=== PATIENT | male | born 1965 | race Caucasian/White ===

== ENCOUNTER → 2020-01-31 21:17 | Outpatient (CLI) | payer MEDICARE, MEDICAID, SELFPAY | PROVIDERS: PCP Internal Medicine; Referring Provider Family Medicine; Visit Provider Family Medicine | DX: G47.9 Sleep disorder, unspecified (principal) | CPT/HCPCS: 95810 ==

== ENCOUNTER 2024-10-11 17:17 | Inpatient (IN) | payer MEDICARE, MEDICAID, SELFPAY ==
[2024-10-11] VITALS (27 sets, daily range): BP systolic 130–158; BP diastolic 58–118; PULSE 100–124; RESP 14–45; TEMP 37–37.6; O2SAT 87–97; BMI 30.9; BMI 29.2
--- NOTE | 2024-10-11 17:42 | EKG12_ITS ---
Test Reason : SOB/TACHYCARDIA Blood Pressure : */* mmHG Vent. Rate : 107 BPM Atrial Rate : 107 BPM P-R Int : 124 ms QRS Dur : 86 ms QT Int : 314 ms P-R-T Axes : 44 13 53 degrees QTcB Int : 419 ms Sinus tachycardia Otherwise normal ECG Confirmed by TOR CONTEH, ZEINA ([id number]), dictionary editor LUIS DANIEL CURRIE ([id number]) on 10/13/2024 8:01:50 AM Referred By: Deonna Marroquin Confirmed By: ZEINA LENTZ MD
[2024-10-11 18:16] LABS: Absolute Lymphocyte Count 0.89 X10^3/uL (0.83-4.51); Absolute Neutrophil Count 8.9 X10^3/uL (2.0-7.7); Basophil# 0.08 X10^3/uL; Basophil% 0.7 % (0-1); Eosinophil# 0.37 X10^3/uL; Eosinophils% 3.2 % (0-5); Hematocrit 41.9 % (40-54); Hemoglobin 13.7 g/dL (13.0-16.5); Lymphocyte # 0.89 X10^3/ul (0.83-4.51); Lymphocyte % 7.7 % (19-41); Mean Corp Hgb Conc 32.7 g/dL (32-36); Mean Corpuscular Hgb 30.4 pg (27.0-32.0); Mean Corpuscular Volume 93.1 fL (80-94); Mean Platelet Vol. 9.7 fl (6.2-12.0); Monocyte# 1.35 X10^3/uL; Monocyte% 11.6 % (0-10); NRBC Flagged by Analyzer 0 % (0-5); Neutrophil # 8.85 X10^3/uL (2.7-7.7); Neutrophil % 76.1 % (47-70); Platelet Count 288 K/mm3 (150-450); RBC Distribution Width CV 12.8 % (11.6-14.6); RBC Distribution Width SD 43.9 fl (35.1-43.9); White Blood Count 11.6 K/mm3 (4.4-11.0)
[2024-10-11 18:25] LABS: Allen Test Positive; Base Excess 4 mmol/L (-2 to +2); Bicarbonate 27.3 mmol/L (22-26); Blood Gas Specimen Type ART; Mode Not entered; O2 Delivery Device AeroMask; PO2 102 mmHG (75-100); SITE R Radial; SO2 98 % (95-99); Total Carbon Dioxide 29 mmol/L; pCO2 37.6 mmHg (35-45); pH 7.47 (7.35-7.45)
[2024-10-11 18:33] LABS: ALB/GLOB Ratio 0.6 RATIO (0.9-2.4); AST(SGOT) 65 U/L (15-37); Alanine Aminotransfer ALT/SGPT 74 U/L (16-61); Alkaline Phosphatase 50 U/L (45-117); Anion Gap 5 (5-15); BUN 14 mg/dL (7-18); BUN/Creat Ratio 14.8 RATIO (10-20); Chloride 105 mmol/L (98-107); Creatinine, Serum 0.94 mg/dL (0.70-1.30); EST Glomerular Filtration Rate 86 mL/min (>60); Est Glom Filt Rate - Afr Amer 105 mL/min (>60); Globulin 4.8 g/dL (2.2-4.2); Glucose 137 mg/dL (74-106); Potassium 4.6 mmol/L (3.5-5.1); Protein, Total 7.8 g/dL (6.4-8.2); Sodium Level 138 mmol/L (136-145)
--- NOTE | 2024-10-11 18:40 | RAD_ITS ---
PROCEDURE: CHEST PA AND LATERAL REASON FOR EXAM: Hypoxia. TECHNIQUE: Frontal and lateral views of the chest. COMPARISON: None. FINDINGS: The heart size is normal. The mediastinal contour is unremarkable. Left basilar opacity which may represent atelectasis or infiltrate. Elevation of left hemidiaphragm. The bones are unremarkable. RAD/Chest PA and Lateral IMPRESSION: Pulmonary findings as above. Reading Location: [id number]
[2024-10-11 18:51] LABS: Lactic Acid 2.1 mmol/L (0.4-1.9)
--- NOTE | 2024-10-11 19:01 | EDS_ITS ---
HPI History of Present Illness Chief Complaint: Cough Detail of Chief Complaint: Decreased activity and cough with decreased p.o. intake Informant: other Onset/Context/Timing Onset: Days (Was seen at [facility] urgent [facility] 3 to 4 days ago and diagnosed with upper respiratory tract infection.) Context: Sudden Onset Timing: Continuous Quality: Intractable cough. Location: Upper respiratory Current Severity: Moderate Maximum Severity: Severe Worsened by: Unable to determine since patient is nonverbal Relieved by: Unable to determine since patient is nonverbal Associated Symptoms Associated Symptoms: Unable to determine Narrative Narrative: Patient is 59-year-old male who is nonverbal. He was seen in urgent care diagnosed with upper respiratory tract infection. Unknown if he has subjective fever or chills. He does not appear well. He has an intractable cough. His lips appeared cyanotic. He has slight delay in capillary refill Prior similar symptoms: Yes Recent Illness/Hospitalization: Yes [facility] Medical History Mental disability Seizures Home Medications ?Medication ?Instructions ?Recorded ?Last Taken ?Type acetaminophen 650 mg mg PO 10/11/24 Unknown Histo ry tablet,extended release carbamazepine 100 mg chewable mg 10/11/24 Unknown Hist ory tablet lamotrigine 25 mg tablet mg 10/11/24 Unknown History linaclotide 290 mcg capsule mcg DAILY 10/11/24 Unknown History (Linzess) losartan 100 mg tablet mg DAILY 10/11/24 Unknown Hi story omeprazole 40 mg capsule,delayed mg DAILY 10/11/24 Unk nown History release Allergy/AdvReac Type Severity Reaction Status Date / Time No Known Allergies Allergy Verified 10/11/24 17:27 Social History Smoking Status: Never smoker ROS ROS ED Review of Systems ROS Unobtainable: due to mental status EXAM Physical Exam Const Vital Signs: 10/11/24 17:17 10/11/24 17:21 10/11/24 17:31 Temperature 98.6 F 98.6 F Temperature Source Oral Oral Pulse Rate 116 H 113 H 112 H Respiratory Rate 27 H 45 H 40 H Respiratory Effort Respiratory Depth Respiratory Pattern Blood Pressure 141/75 H 149/68 H Blood Pressure Mean 97 95 Pulse Ox 87 94 94 Oxygen Delivery Method Room Air Nasal Cannula Nasal Cannula Oxygen Flow Rate (L/min) 2 2 02/06/25 17:36 10/11/24 17:45 10/11/24 17:52 Temperature Temperature Source Pulse Rate 116 H 120 H Respiratory Rate 28 H 37 H Respiratory Effort Respiratory Depth Respiratory Pattern Blood Pressure 154/67 H Blood Pressure Mean 85 Pulse Ox 92 93 Oxygen Delivery Method Nasal Cannula Oxygen Flow Rate (L/min) 4 10/11/24 18:00 10/11/24 18:01 10/11/24 18:02 Temperature Temperature Source Pulse Rate 122 H 121 H 114 H Respiratory Rate 42 H 41 H 33 H Respiratory Effort Respiratory Depth Respiratory Pattern Tachypnea Blood Pressure 158/72 H Blood Pressure Mean 89 Pulse Ox 90 87 Oxygen Delivery Method Oxygen Flow Rate (L/min) 10/11/24 18:10 10/11/24 18:15 10/11/24 18:26 Temperature 99.6 F H Temperature Source Axillary Pulse Rate 116 H 121 H Respiratory Rate 26 H 32 H Respiratory Effort Short of Breath Labored Accessory Muscle Use Head [place] Respiratory Depth Shallow Respiratory Pattern Tachypnea Blood Pressure 158/72 H Blood Pressure Mean 100 Pulse Ox 95 94 Oxygen Delivery Method Nasal Cannula Nasal Cannula Oxygen Flow Rate (L/min) 4 4 10/11/24 18:30 10/11/24 19:00 Temperature 98.8 F Temperature Source Axillary Pulse Rate 124 H 121 H Respiratory Rate 21 H 38 H Respiratory Effort Respiratory Depth Respiratory Pattern Blood Pressure 145/118 H Blood Pressure Mean 127 Pulse Ox 92 94 Oxygen Delivery Method High Flow Oxygen Flow Rate (L/min) 10 Vital signs reviewed. Positive well nourished and well developed Constitutional Narrative: BMI is 30.9. General Appearance ED: well developed and cyanotic HEENT Reports moist mucous membranes Eyes PERRL and EOMs intact bilaterally General Eye ED: Negative for pale conjunctiva or scleral icterus Neck no lymphadenopathy, supple and no JVD Chest Wall inspection of chest normal and palpation of chest normal Resp No normal respiratory effort and No clear to auscultation bilaterally Resp Narrative: There is use of accessory muscles. He is tachypneic. Auscultation: rhonchi throughout and wheezes expiratory wheezes and throughout Cardio regular rhythm, S1 normal heart sound, S2 normal heart sound and no murmurs Rate: tachycardic GI normal to inspection, nondistended, normoactive bowel sounds, non-tender, non- distended and no masses; Negative for hepatosplenomegaly Palpation: soft Back/Spine Back/Spine Narrative: Unable determine if patient has CVA tenderness. Extremity Extremity Narrative: There is no clubbing or cyanosis noted. Neuro CN's II-XII intact bilaterally Neuro Narrative: Moves all extremities. Psych Psych Narrative: Unable to determine Skin Skin Narrative: There is no mottling. There is no petechiae. Sepsis Attestation Sepsis Alert: Yes Sepsis Attestation: Agree w/Sepsis Date exam was performed: 10/11/24 Time exam was performed: 19:09 Possible Source of Sepsis: Pulmonary Fluid Resuscitation Fluid resuscitation indicated?: Yes Fluid Resuscitation ordered: 30 ml/kg fluid bolus ordered MDM MDM MDM Narrative Medical decision making narrative: Need to evaluate for viral infection versus bacterial infection. Patient is hypoxic. ABG was obtained because of decreased level of consciousness bradycardia blood cultures were obtained, fluid bolus was administered Lab Data Attestation: I reviewed the patient's lab results. Lab results narrative: White count is slightly of 11.6 thousand with mild shift. Comprehensive metabolic panel is remarkable for glucose of 137 with normal CO2 anion gap. Lactate elevated 2.1. Labs: Laboratory Results - last 24 hr 10/11/24 17:46 WBC 11.6 H RBC 4.50 L Hgb 13.7 Hct 41.9 MCV 93.1 MCH 30.4 MCHC 32.7 RDW Std Deviation 43.9 RDW Coeff of Javed 12.8 Plt Count 288 MPV 9.7 Immature Gran % (Auto) 0.700 Neut % (Auto) 76.1 H Lymph % (Auto) 7.7 L [place] % (Auto) 11.6 H Eos % (Auto) 3.2 Baso % (Auto) 0.7 Absolute Neuts (auto) 8.9 H Absolute Lymphs (auto) 0.89 Nucleated RBC % 0 Sodium 138 Potassium 4.6 Chloride 105 Carbon Dioxide 28.0 Anion Gap 5 BUN 14 Creatinine 0.94 Estim Creat Clear Calc 77.80 Est GFR (MDRD) Af Amer 105 Est GFR (MDRD) Non-Af 86 BUN/Creatinine Ratio 14.8 Glucose 137 H Lactic Acid 2.1 H* Calcium 9.0 Total Bilirubin 0.20 AST 65 H ALT 74 H Alkaline Phosphatase 50 Total Protein 7.8 Albumin 3.0 L Globulin 4.8 H Albumin/Globulin Ratio 0.6 L ABG Data Attestation: I personally reviewed and interpreted this ABG as follows: Interpretation: ABG was obtained since he looks very ill and concern for CO2 retention. Patient has mild alkalemia with a pH of 7.47. Bicarb is 27.3 which is elevated. Total CO2 is normal at 29. pCO2 is 37.6 and P O2 is 102. Patient is presently on 4 L of oxygen by nasal cannula. He was hypoxic upon arrival. ABG results: ABG 10/11/24 18:21 Specimen Type ART Sample Site R Radial pH 7.47 H Bicarbonate Actual 27.3 H Total CO2 29 Base Excess 4 H O2 Saturation 98 O2 % 6.0 ABG pCO2 37.6 ABG pO2 102 H Parvez Test Positive O2 Delivery Device AeroMask Vent Mode Not entered Radiography Chest X-Ray - ED: 2 View, Read by ED Physician (Suboptimal film. Inspiratory volume is limited. Patient does have a significant hiatal hernia. There is borderline cardiomegaly. There is no infiltrate or effusion noted.) and - (There is concern patient may have aspirated because he is having trouble clearing secretions. Respiratory therapist told me he has brown-green thick copious sputum production.) Diagnostic Testing: Clinical Impression(s) from Imaging Studies Chest X-Ray 10/11/24 18:40 IMPRESSION: Pulmonary findings as above. Reading Location: [facility] Radiology report was noted. In my opinion patient has a hiatal hernia. He does not have an elevated left hemidiaphragm. He probably does have atelectasis. EKG Initial EKG: Attestation: I personally reviewed and interpreted this EKG as follows: Interpretation: Sinus Tachycardia (Rate is 107. EKG is otherwise normal. [place] interval is 124 ms. QRS duration 86 ms. QT duration 3 and 14 ms. [place] is normal.) Management Discussion w/another healthcare provider: Hospitalist (Dr. Marroquin was paged. Patient be a full admission. Since patient by definition has sepsis he was admitted to ICU.) Treatment and Re-Evaluation :: Patient did receive albuterol for his wheezing. He did improve. He still has copious colored sputum. 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
--- NOTE | 2024-10-11 19:39 | HP.PCM.HOS_ITS ---
HPI - General General Date of Admission: 10/11/24 Date of Service: 10/11/24 Chief Complaint: Recent URI, worsening dyspnea, productive cough, hypoxia. HPI Narrative The patient is a 59 y/o M w/ PMHx: HTN, HLD, GERD, Mental disability, Seizure disorder, Chronic constipation who presents to the [facility] ED on 10/11/2024 with history of recent evaluation in urgent care approximately 3 to 4 days prior diagnosed with an upper respiratory tract infection at that time with persistent subjective fevers and chills, intractable cough, dyspnea with decreased oral intake progressively worsening prompting eventual [facility] ED evaluation. tent worker also reports that patient had rhinorrhea and congestion. She denies any specific nausea, emesis or diarrhea bouts. In the ED patient is noted to be nonverbal but is normally very interactive and alert and humming. tent worker is in the ED with the patient currently notes this is the most awake he is looked in the last couple days. She does report that he has a modified diet specifically pur?ed diet but that he does not choke on his foods or cough. She does report that there have been several influenza cases as well as COVID cases in the care home. Father is present for discussions and is his guardian. Workup in the ED included T98.6, heart rate 116, BP 141/75, respiratory rate 27, 87% on room air intermittently desaturating with most recent repeat vitals T98.8 Axillary, heart rate 121, BP 145/118, respiratory rate 38, 94% on 10 L high flow, CBC with WC 11.6, hemoglobin 13.7, platelet 288 with left shift, ABG with pH 7.47, bicarb 27.3, pCO2 37.6, pO2 102 on aero mask, CMP with glucose 137, lactic acid 2.1, AST/LT 65/74, chest x-ray with left basilar opacity suspicious for atelectasis versus infiltrate, elevation left hemidiaphragm, blood culture x 2 pending per ED, rapid SARS COVID/influenza/RSV negative. In the ED patient ministered normal saline with plan for 2500 cc per 30 cc/kg IV fluid sepsis bolus, azithromycin 500 mg x 1, Rocephin 2 g IV x 1. [facility] Medical History (Updated 10/11/24 @ 20:[address] Deonna Marroquin MD) Mental disability Obesity Chronic constipation GERD (gastroesophageal reflux disease) HLD (hyperlipidemia) HTN (hypertension) Mental disability Seizures Home Medications ?Medication ?Instructions ?Recorded ?Last Taken ?Type acetaminophen 650 mg mg PO 10/11/24 Unknown Histo ry tablet,extended release carbamazepine 100 mg chewable mg 10/11/24 Unknown Hist ory tablet lamotrigine 25 mg tablet mg 10/11/24 Unknown History linaclotide 290 mcg capsule mcg DAILY 10/11/24 Unknown History (Linzess) losartan 100 mg tablet mg DAILY 10/11/24 Unknown Hi story omeprazole 40 mg capsule,delayed mg DAILY 10/11/24 Unk nown History release Allergy/AdvReac Type Severity Reaction Status Date / Time No Known Allergies Allergy Verified 10/11/24 17:27 Family History (Updated 10/11/24 @ 20:[address] Deonna Marroquin MD) Mother CVA (cerebral vascular accident) Hypertension Diabetes Father No problems noted. Surgical History (Updated 10/11/24 @ 20:[address] Deonna Marroquin MD) History of surgery on lower extremity Social History (Updated 10/11/24 @ 20:[address] Deonna Marroquin MD) household members: other details: retirement. Smoking Status: Never smoker alcohol intake: never substance use type: does not use ROS Review of Systems ROS Unobtainable: due to encephalopathy and due to mental condition Vital Signs Vital Signs Vital Signs: 10/11/24 17:17 10/11/24 17:21 10/11/24 17:31 Temperature 98.6 F 98.6 F Temperature Source Oral Oral Pulse Rate 116 H 113 H 112 H Respiratory Rate 27 H 45 H 40 H Respiratory Effort Respiratory Depth Respiratory Pattern Blood Pressure 141/75 H 149/68 H Blood Pressure Mean 97 95 Pulse Ox 87 94 94 Oxygen Delivery Method Room Air Nasal Cannula Nasal Cannula Oxygen Flow Rate (L/min) 2 2 10/11/24 17:36 10/11/24 17:45 10/11/24 17:52 Temperature Temperature Source Pulse Rate 116 H 120 H Respiratory Rate 28 H 37 H Respiratory Effort Respiratory Depth Respiratory Pattern Blood Pressure 154/67 H Blood Pressure Mean 85 Pulse Ox 92 93 Oxygen Delivery Method Nasal Cannula Oxygen Flow Rate (L/min) 4 10/11/24 18:00 10/11/24 18:01 10/11/24 18:02 Temperature Temperature Source Pulse Rate 122 H 121 H 114 H Respiratory Rate 42 H 41 H 33 H Respiratory Effort Respiratory Depth Respiratory Pattern Tachypnea Blood Pressure 158/72 H Blood Pressure Mean 89 Pulse Ox 90 87 Oxygen Delivery Method Oxygen Flow Rate (L/min) 10/11/24 18:10 10/11/24 18:15 10/11/24 18:26 Temperature 99.6 F H Temperature Source Axillary Pulse Rate 116 H 121 H Respiratory Rate 26 H 32 H Respiratory Effort Short of Breath Labored Accessory Muscle Use Head [place] Respiratory Depth Shallow Respiratory Pattern Tachypnea Blood Pressure 158/72 H Blood Pressure Mean 100 Pulse Ox 95 94 Oxygen Delivery Method Nasal Cannula Nasal Cannula Oxygen Flow Rate (L/min) 4 4 10/11/24 18:30 10/11/24 19:00 Temperature 98.8 F Temperature Source Axillary Pulse Rate 124 H 121 H Respiratory Rate 21 H 38 H Respiratory Effort Respiratory Depth Respiratory Pattern Blood Pressure 145/118 H Blood Pressure Mean 127 Pulse Ox 92 94 Oxygen Delivery Method High Flow Oxygen Flow Rate (L/min) 10 Weight Weight: 174 lb 9.698 oz Body Mass Index (BMI) 30.9 Physical Exam Narrative Physical Examination: General: Lethargic, falling asleep, evident respiratory distress, seated upright in ED bed, coughing significantly, requiring notable suctioning, unable to answer any orientation questions. Skin: Normal color, normal turgor, no icterus, no cyanosis. HEENT: AT/NC, EOMI, PERRLA, dry MM, coughing frequently with oral secretions being suctioned, not purulent appearing currently but clear, no carotid bruits or JVD noted but difficult assessment is moving frequently given coughing fits and obese with thickened neck. Lungs: CTA bilaterally, moderate effort, mild decrease BL bases, no rales, ronchi or wheezing. Heart: Tachycardic with regular rhythm; no gallop, rub audible. Abdomen: Soft, obese, NTTP, difficult to assess bowel sounds given frequent coughing with referred sounds, unable to discern distention HSM given coughing frequently and using intra-abdominal muscles. Extremities: No cyanosis, no clubbing, no significant marked noted edema, chronically uses bilateral leg braces. Neurological: Lethargic, falling asleep, evident respiratory distress, seated upright in ED bed, coughing significantly, requiring notable suctioning, unable to answer any orientation questions, cognitive function decreased baseline given nonverbal status but normally humming and interactive, currently not baseline intact; pupils equally reactive to light and accommodation, cranial nerves grossly appear normal but difficult assessment given severity of illness, moving extremities, strength severely globally decreased. Psychiatric: Affect appears fatigued, lethargic, ill-appearing, evidence of respiratory distress, no acute evidence of depressive or anxiety feelings. Results Lab / Micro Data 10/11/24 17:46 10/11/24 17:46 Labs: Laboratory Results - last 24 hr 10/11/24 17:46: WBC 11.6 H, RBC 4.50 L, Hgb 13.7, Hct 41.9, MCV 93.1, MCH 30.4, MCHC 32.7, RDW Std Deviation 43.9, RDW Coeff of Javed 12.8, Plt Count 288, MPV 9.7, Immature Gran % (Auto) 0.700, Neut % (Auto) 76.1 H, Lymph % (Auto) 7.7 L, M suha % (Auto) 11.6 H, Eos % (Auto) 3.2, Baso % (Auto) 0.7, Absolute Neuts (auto) 8.9 H, Absolute Lymphs (auto) 0.89, Nucleated RBC % 0, Sodium 138, Potassium 4.6, Chloride 105, Carbon Dioxide 28.0, Anion Gap 5, BUN 14, Creatinine 0.94, Estim Creat Clear Calc 77.80, Est GFR (MDRD) Af Amer 105, Est GFR (MDRD) Non-Af 86, BUN/Creatinine Ratio 14.8, Glucose 137 H, Lactic Acid 2.1 H*, Calcium 9.0, Total Bilirubin 0.20, AST 65 H, ALT 74 H, Alkaline Phosphatase 50, Total Protein 7.8, Albumin 3.0 L, Globulin 4.8 H, Albumin/Globulin Ratio 0.6 L Micro: Microbiology 10/11/24 17:46 Mucosa - Nose SARS-CoV-2, Influenza & RSV (PCR) - Final ABG Data ABG results: ABG 10/11/24 18:21 Specimen Type ART Sample Site R Radial pH 7.47 H Bicarbonate Actual 27.3 H Total CO2 29 Base Excess 4 H O2 Saturation 98 O2 % 6.0 ABG pCO2 37.6 ABG pO2 102 H Parvez Test Positive O2 Delivery Device AeroMask Vent Mode Not entered Imaging Radiology Impression Chest X-Ray 10/11/24 18:40 IMPRESSION: Pulmonary findings as above. Reading Location: [facility] Assessment & Plan Assessment/Plan (1) Sepsis: (2) Acute hypoxemic respiratory failure: (3) Pneumonia: PLAN: Plan The patient is a 59 y/o M w/ PMHx: HTN, HLD, GERD, Mental disability, Seizure disorder, Chronic constipation who presents to the [facility] ED on 10/11/2024 with history of recent evaluation in urgent care approximately 3 to 4 days prior diagnosed with an upper respiratory tract infection at that time with persistent subjective fevers and chills, intractable cough, dyspnea with decreased oral intake progressively worsening prompting eventual [facility] ED evaluation. #1. Acute sepsis (acute hypoxic respiratory failure, encephalopathy, tachycardia also documented per ED, lactic acidosis but no other overt end organ failure) secondary to acute encephalopathy secondary to acute hypoxic respiratory failure secondary to acute left lower lobe pneumonia, community- acquired: Will admit to ICU per protocol, ABG not severe appearing however patient is significantly cephalopathic, low threshold to repeat if necessary, generator operator consulted, will maintain on oxygen with wean as tolerated to room air, continue ATC duonebs, PRN albuterol, maintain on IV Unasyn and Azithromycin per severe PNA protocol also until assure aspiration not a component, HOB, IS parameters w/ pending sputum cultures and urine antigens. Bld cx x 2 obtained in the ED. Will obtain AM oxygenation trial for discharge planning daily. #2. Mild transaminitis, unclear etiology, likely secondary to #1: Admission CMP with AST/ALT 65/74 otherwise hepatic profile unremarkable, will continue treatment as noted above and repeat CMP in AM. #3. Hyperglycemia, mild, likely stress response: Initial glucose 137, no diabetic history, suspect likely secondary to acute illness, continue to monitor and if significantly elevated low threshold to investigate further. #4. Seizure disorder with mental disability: Complicates presentation, baseline nonverbal. Once assure oral intake is safe we will continue patient home carbamazepine and lamotrigine regimen, if unable we will transition to IV as able. #5. Hypertension: Once oral intake is safe we will continue patient home losartan, PRN hydralazine. #6. Hyperlipidemia: Once oral intake is safe we will continue patient home statin therapy. #7. Chronic constipation: Once oral intake is safe we will continue patient home Linzess and bowel regimen. #8. Obesity: Weight loss and lifestyle changes encouraged. #9. GERD: Will temporally maintain on IV PPI until sure oral intake is safe. #11. DVT prophylaxis: Lovenox. #12. CODE status: Patient HCPOA/legal guardian is his father who is present. Discussed CODE status at length including difference between FULL code, DNR-CCA and DNR-CC status. Following discussions about the differences in these status, requested continuation of DNR-CCA status which was noted from facility but discussed and clarified intubation and following discussion of examples requested DNR-CCA, no intubation status. Advanced Care Planning Face to Face Time: 16 minutes. Charges/Coding Visit Charges Inpatient E&M: 19292 Init Hosp L3 Procedures Hospitalists Procedures: 96041 Advncd Care Plan 30 Min
[2024-10-11] MEDS: 0.9% Normal Saline (1000mL) 1,000 ML 999 ML IV ×3 (19:41→22:59)
[2024-10-11] MEDS: Ceftriaxone 2 GM in 0.9% Normal Saline (50mL MB+) 50 ML IV (19:51)
--- NOTE | 2024-10-11 20:16 | ED.RN ---
PATIENT NURSE LIZZIE Eckert/ [facility] UPDATED ON ADMISSION TO HOSPITAL.
--- NOTE | 2024-10-11 20:17 | CM.ED ---
Social work Reason for referral: admission to acute Referral source: case find This SW identified patient being admitted to acute and currently being placed at [facility] in [place]. This SW entered patient's room, introducing self and role at [facility]. Patient's father, Frederick, and caregiver, Sourav, were bedside. Sourav stated patient would be returning to [facility] upon discharge from [facility]. Sourav provided the house nurses' number should anything be needed while patient is admitted: Linda, . Naima Huber, ELECTRICAL FITTER, ENROLLMENT REPRESENTATIVE
[2024-10-11 20:33] LABS: Procalcitonin 0.29 ng/mL (0.00-0.09)
[2024-10-11] MEDS: Azithromycin 500 MG in 0.9% Normal Saline (250mL Bag) 250 ML 255 MG IV (20:46)
--- NOTE | 2024-10-11 21:08 | ED.RN ---
REPORT CALLED TO ICU NURSE MARTA. NO FURTHER QUESTIONS BY THE RECEIVING NURSE AT THIS TIME.
[2024-10-11 21:57] LABS: Reflex Lactate? Y
[2024-10-11] MEDS: Pantoprazole Sodium 40 MG in 0.9% Normal Saline (100mL MB+) 100 ML 330 MG IV (22:57)
[2024-10-11 23:25] LABS: Lactic Acid 2.1 mmol/L (0.4-1.9)
[2024-10-11] MEDS: Ipratropium/Albuterol Sulfate 3 ML AMPUL.NEB INHALATION (23:25)
[2024-10-11] MEDS: 0.9% Normal Saline (1000mL) 1,000 ML 100 ML IV (23:58)
[2024-10-11] MEDS: Ampicillin/Sulbactam 3 GM in 0.9% Normal Saline (100mL MB+) 100 ML IV (23:59)
[2024-10-12] VITALS (17 sets, daily range): BP systolic 124–155; BP diastolic 60–84; PULSE 83–118; RESP 19–32; TEMP 36.6–37.3; O2SAT 91–98; BMI 29.2
[2024-10-12 03:23] LABS: Absolute Lymphocyte Count 0.72 X10^3/uL (0.83-4.51); Absolute Neutrophil Count 8.1 X10^3/uL (2.0-7.7); Basophil# 0.05 X10^3/uL; Basophil% 0.5 % (0-1); Eosinophil# 0.15 X10^3/uL; Eosinophils% 1.5 % (0-5); Hematocrit 36.5 % (40-54); Hemoglobin 11.9 g/dL (13.0-16.5); Lymphocyte # 0.72 X10^3/ul (0.83-4.51); Lymphocyte % 7.1 % (19-41); Mean Corp Hgb Conc 32.6 g/dL (32-36); Mean Corpuscular Hgb 30.2 pg (27.0-32.0); Mean Corpuscular Volume 92.6 fL (80-94); Mean Platelet Vol. 9.5 fl (6.2-12.0); Monocyte# 1.12 X10^3/uL; NRBC Flagged by Analyzer 0 % (0-5); Neutrophil # 8.08 X10^3/uL (2.7-7.7); Neutrophil % 79.1 % (47-70); Platelet Count 241 K/mm3 (150-450); RBC Distribution Width CV 12.7 % (11.6-14.6); RBC Distribution Width SD 43.5 fl (35.1-43.9); Red Blood Count 3.94 M/mm3 (4.6-6.2); White Blood Count 10.2 K/mm3 (4.4-11.0)
[2024-10-12 03:42] LABS: ALB/GLOB Ratio 0.6 RATIO (0.9-2.4); AST(SGOT) 83 U/L (15-37); Alanine Aminotransfer ALT/SGPT 75 U/L (16-61); Albumin, Serum 2.5 g/dL (3.2-5.0); Alkaline Phosphatase 71 U/L (45-117); Anion Gap 5 (5-15); BUN 10 mg/dL (7-18); BUN/Creat Ratio 11.7 RATIO (10-20); Calcium,Total 7.6 mg/dL (8.5-10.1); Chloride 111 mmol/L (98-107); Creatinine, Serum 0.85 mg/dL (0.70-1.30); EST Glomerular Filtration Rate 97 mL/min (>60); Est Glom Filt Rate - Afr Amer 117 mL/min (>60); Globulin 4.1 g/dL (2.2-4.2); Glucose 125 mg/dL (74-106); Potassium 4.1 mmol/L (3.5-5.1); Protein, Total 6.6 g/dL (6.4-8.2); Sodium Level 143 mmol/L (136-145)
[2024-10-12] MEDS: 0.9% Saline Lock 10 ML Syringe IV (04:49)
[2024-10-12] MEDS: Ampicillin/Sulbactam 3 GM in 0.9% Normal Saline (100mL MB+) 100 ML IV ×4 (04:50→23:50)
--- NOTE | 2024-10-12 06:59 | CON.PCM.CC_ITS ---
Assessment & Plan Assessment/Plan (1) Pneumonia: PLAN: Plan RECOMMENDATIONS: 1. Continue empiric antibiotics. 2. Continue appropriate DVT prophylaxis. 3. Encourage incentive spirometer use and mobilize patient as tolerated. 4. The patient is medically stable for transfer out of the intensive care unit. 5. Will sign off from a critical care perspective. Please call with any questions. IMPRESSIONS: 1. Cough and dyspnea presumed secondary to pneumonia While the patient was admitted and initially required supplemental oxygen, he has been weaned to room air this morning and has remained clinically stable from a hemodynamic perspective. Viral workup was unremarkable. Blood cultures are currently pending. Recommend continuing antimicrobials as ordered. Encourage incentive spirometer use and mobilize patient as tolerated. 2. Underlying mental disability with seizure disorder/hypertension/hyperlipidemia/obesity/GERD Complicates care, management, recovery and prognosis. Continue home medications as indicated. This note was generated with Routeware[employer] software. It may contain incorrect words, spelling, and punctuation that were not noted in checking the note before signing. HPI Consult Data Date of Consult: 10/12/24 HPI Narrative Reason for Consultation: Sepsis HPI Narrative: The patient is a 59-year-old male, with a history as outlined below, who presented to the emergency department on October 11 with subjective fevers, cough and shortness of breath. The patient currently resides at a intermediate, and according to staff, has also been experiencing rhinorrhea and nasal congestion. No specific history could be obtained from the patient himself. According to documentation, however, there has been several influenza and COVID cases in the intermediate recently. On presentation to the emergency department, the patient was documented to be afebrile but was tachycardic and tachypneic. Laboratory evaluation revealed a white blood cell count of 11,000. Chemistry profile was unremarkable. Lactate was mildly elevated at 2.1. Chest x-ray demonstrated left basilar airspace infiltrate. The patient has been completely normotensive. The patient did receive supplemental IV fluid hydration and was started on antibiotics. He was subsequently admitted to the medical intensive care unit for further management. This morning, the patient remains hemodynamically stable and is maintaining appropriate oxygen saturations on room air. [facility] Medical History (Updated 10/11/24 @ 20:[address] Deonna Marroquin MD) Mental disability Obesity Chronic constipation GERD (gastroesophageal reflux disease) HLD (hyperlipidemia) HTN (hypertension) Mental disability Seizures Home Medications ?Medication ?Instructions ?Recorded ?Last Taken ?Type acetaminophen 650 mg 1,300 mg PO Q6H 10/11/24 Unk nown History tablet,extended release atorvastatin 20 mg tablet 20 mg PO QHS 10/11/24 Unknow n History carbamazepine 100 mg chewable 150 mg PO Q12H 10/11/24 Unknown History tablet cholecalciferol (vitamin D3) 25 25 mcg PO DAILY Unknown History mcg (1,000 unit) tablet docusate sodium 100 mg capsule mg PO 10/11/24 Unknown History ibuprofen 600 mg tablet 600 mg PO 3XD 10/11/24 Unkno wn History lamotrigine 100 mg tablet 100 mg PO Q12H 10/11/24 Unkn own History linaclotide 290 mcg capsule 290 mcg PO DAILY 10/11/24 Unknown History (Linzess) losartan 100 mg tablet 100 mg feeding tube DAILY Unknown History omeprazole 20 mg capsule,delayed 20 mg PO DAILY Unknown History release polyethylene glycol 3350 17 17 g PO BID PRN constipati on 10/11/24 Unknown History gram/dose oral powder Allergy/AdvReac Type Severity Reaction Status Date / Time No Known Allergies Allergy Verified 10/11/24 17:27 Family History (Updated 10/11/24 @ 20:[address] Deonna Marroquin MD) Mother CVA (cerebral vascular accident) Hypertension Diabetes Father No problems noted. Surgical History (Updated 10/11/24 @ 20:[address] Deonna Marroquin MD) History of surgery on lower extremity Social History (Updated 10/11/24 @ 20:[address] Deonna Marroquin MD) household members: other details: senior living. Smoking Status: Never smoker alcohol intake: never substance use type: does not use ROS ROS Narrative 10 systems were reviewed with pertinent positives as noted in the HPI above. Physical Exam Const alert and no apparent distress Constitutional Narrative: Not currently answering any of my questions. General Appearance: cooperative HEENT normocephalic and head/scalp atraumatic HEENT Narrative: Blood noted in nares. Eyes EOMs intact bilaterally and conjunctivae normal Neck supple General: trachea midline Chest inspection of chest normal Resp normal respiratory effort Auscultation: Negative for rales, rhonchi or wheezes Cardio regular rate and regular rhythm GI normal to inspection, nondistended, normoactive bowel sounds Extremity no clubbing, cyanosis or edema Skin no rashes or lesions noted Neuro CN's II-XII intact bilaterally, moves all extremities and no focal motor deficits Psych Mood & Affect: flat affect Lab / Micro Data 10/12/24 03:00 10/12/24 03:00 Labs: Laboratory Results - last 24 hr 10/11/24 17:46: WBC 11.6 H, RBC 4.50 L, Hgb 13.7, Hct 41.9, MCV 93.1, MCH 30.4, MCHC 32.7, RDW Std Deviation 43.9, RDW Coeff of Javed 12.8, Plt Count 288, MPV 9.7, Immature Gran % (Auto) 0.700, Neut % (Auto) 76.1 H, Lymph % (Auto) 7.7 L, M suha % (Auto) 11.6 H, Eos % (Auto) 3.2, Baso % (Auto) 0.7, Absolute Neuts (auto) 8.9 H, Absolute Lymphs (auto) 0.89, Nucleated RBC % 0, Sodium 138, Potassium 4.6, Chloride 105, Carbon Dioxide 28.0, Anion Gap 5, BUN 14, Creatinine 0.94, Estim Creat Clear Calc 77.80, Est GFR (MDRD) Af Amer 105, Est GFR (MDRD) Non-Af 86, BUN/Creatinine Ratio 14.8, Glucose 137 H, Lactic Acid 2.1 H*, Calcium 9.0, Total Bilirubin 0.20, AST 65 H, ALT 74 H, Alkaline Phosphatase 50, Total Protein 7.8, Albumin 3.0 L, Globulin 4.8 H, Albumin/Globulin Ratio 0.6 L 10/11/24 19:35: Procalcitonin 0.29 H 10/11/24 22:25: Lactic Acid 2.1 H* 10/12/24 03:00: WBC 10.2, RBC 3.94 L, Hgb 11.9 L, Hct 36.5 L, MCV 92.6, MCH 30.2, MCHC 32.6, RDW Std Deviation 43.5, RDW Coeff of Javed 12.7, Plt Count 241, MPV 9.5, Immature Gran % (Auto) 0.800, Neut % (Auto) 79.1 H, Lymph % (Auto) 7.1 L, [place] % (Auto) 11.0 H, Eos % (Auto) 1.5, Baso % (Auto) 0.5, Absolute Neuts (auto) 8.1 H, Absolute Lymphs (auto) 0.72 L, Nucleated RBC % 0, Sodium 143, Potassium 4.1, Chloride 111 H, Carbon Dioxide 27.0, Anion Gap 5, BUN 10, Creatinine 0.85, Estim Creat Clear Calc 86.80, Est GFR (MDRD) Af Amer 117, Est GFR (MDRD) Non-Af 97, BUN/Creatinine Ratio 11.7, Glucose 125 H, Calcium 7.6 L, Total Bilirubin 0.20, AST 83 H, ALT 75 H, Alkaline Phosphatase 71, Total Protein 6.6, Albumin 2.5 L, Globulin 4.1, Albumin/Globulin Ratio 0.6 L Micro: Microbiology 10/11/24 23:20 Mucosa - Nasopharyngeal Respiratory Panel (PCR) - Final 10/11/24 17:46 Mucosa - Nose SARS-CoV-2, Influenza & RSV (PCR) - Final ABG Data ABG results: ABG 10/11/24 18:21 Specimen Type ART Sample Site R Radial pH 7.47 H Bicarbonate Actual 27.3 H Total CO2 29 Base Excess 4 H O2 Saturation 98 O2 % 6.0 ABG pCO2 37.6 ABG pO2 102 H Parvez Test Positive O2 Delivery Device AeroMask Vent Mode Not entered Imaging Radiology Impression Chest X-Ray 10/11/24 18:40 IMPRESSION: Pulmonary findings as above. Reading Location: [id number] Charges/Coding Visit Charges Inpatient E&M: 41752 Init Hosp L2
[2024-10-12] MEDS: Ipratropium/Albuterol Sulfate 3 ML AMPUL.NEB INHALATION (07:23)
--- NOTE | 2024-10-12 08:38 | CPS ---
Pt is unable to keep anything on. He does not like the Mask for the breathing treatment and will not wear a pulse ox.
[2024-10-12] MEDS: Losartan Potassium 100 MG Tablet PO (09:58)
[2024-10-12] MEDS: lamoTRIgine 100 MG Tablet PO ×2 (09:58→20:48)
[2024-10-12] MEDS: Enoxaparin 40 MG/0.4 ML Syringe SC (09:58)
[2024-10-12] MEDS: carBAMazepine 200 MG/10 ML UDC (WCH) 150 MG PO ×2 (09:59→20:48)
[2024-10-12] MEDS: Sodium Chloride 0.65% 1 SPRAY SPRAY.BTL 2 SPRAY NASAL ×2 (09:59→15:40)
[2024-10-12] MEDS: guaiFENesin 10 ML UDC (200MG/10ML) PO ×2 (10:10→15:40)
[2024-10-12] MEDS: Acetaminophen 325 MG Tablet 650 MG PO ×2 (10:10→15:41)
[2024-10-12] MEDS: Pantoprazole Sodium 40 MG in 0.9% Normal Saline (100mL MB+) 100 ML 330 MG IV ×2 (10:43→20:49)
--- NOTE | 2024-10-12 13:29 | CASEMGMT ---
Social Work ZUNILDA called the warehouse team member, Linda([phone]) , from pt's [facility]. She states that it would be extremely difficult for them to take pt back on the weekend due to staffing, there is no nurse available for the weekend. Linda did want medical updates. ZUNILDA faxed([phone]) the updates, and will follow up on Tuesday. MARTA Olmos
--- NOTE | 2024-10-12 14:17 | PN_ITS ---
Subjective Subjective Patient seen and examined. Patient is nonverbal so unable to do review of systems. He was admitted with shortness of breath. He was having quite a bad coughing fit when I went in and saw him. He was however on room air and vitals were otherwise stable. Objective Data Objective Data Vital Signs: Vital Signs Temp Pulse Resp BP Pulse Ox O2 Del Method O2 Flow Rate 98.6 F 108 H 19 H 132/67 H 92 Room Air 3 10/12/24 12:25 10/12/24 12:25 10/12/24 12:25 10/12/24 12:25 10/12/24 13:32 10/12/24 12:10/12/24 05:41 Oxygen Flow Rate (L/min) 3 Oxygen Delivery Method Room Air Weight: 170 lb 3.15 oz Body Mass Index (BMI) 29.2 Intake & Output: Intake and Output for Last 24 Hours 10/10/24 10/11/24 10/12/24 23:59 23:59 23:59 Intake Total 2915 / 2915 2065 Balance 2915 / 2915 2065 Lab / Micro Data 10/12/24 03:00 10/12/24 03:00 Labs: Laboratory Results - last 24 hr 10/11/24 17:46: WBC 11.6 H, RBC 4.50 L, Hgb 13.7, Hct 41.9, MCV 93.1, MCH 30.4, MCHC 32.7, RDW Std Deviation 43.9, RDW Coeff of Javed 12.8, Plt Count 288, MPV 9.7, Immature Gran % (Auto) 0.700, Neut % (Auto) 76.1 H, Lymph % (Auto) 7.7 L, M suha % (Auto) 11.6 H, Eos % (Auto) 3.2, Baso % (Auto) 0.7, Absolute Neuts (auto) 8.9 H, Absolute Lymphs (auto) 0.89, Nucleated RBC % 0, Sodium 138, Potassium 4.6, Chloride 105, Carbon Dioxide 28.0, Anion Gap 5, BUN 14, Creatinine 0.94, Estim Creat Clear Calc 77.80, Est GFR (MDRD) Af Amer 105, Est GFR (MDRD) Non-Af 86, BUN/Creatinine Ratio 14.8, Glucose 137 H, Lactic Acid 2.1 H*, Calcium 9.0, Total Bilirubin 0.20, AST 65 H, ALT 74 H, Alkaline Phosphatase 50, Total Protein 7.8, Albumin 3.0 L, Globulin 4.8 H, Albumin/Globulin Ratio 0.6 L 10/11/24 19:35: Procalcitonin 0.29 H 10/11/24 22:25: Lactic Acid 2.1 H* 10/12/24 03:00: WBC 10.2, RBC 3.94 L, Hgb 11.9 L, Hct 36.5 L, MCV 92.6, MCH 30.2, MCHC 32.6, RDW Std Deviation 43.5, RDW Coeff of Javed 12.7, Plt Count 241, MPV 9.5, Immature Gran % (Auto) 0.800, Neut % (Auto) 79.1 H, Lymph % (Auto) 7.1 L, [place] % (Auto) 11.0 H, Eos % (Auto) 1.5, Baso % (Auto) 0.5, Absolute Neuts (auto) 8.1 H, Absolute Lymphs (auto) 0.72 L, Nucleated RBC % 0, Sodium 143, Potassium 4.1, Chloride 111 H, Carbon Dioxide 27.0, Anion Gap 5, BUN 10, Creatinine 0.85, Estim Creat Clear Calc 86.80, Est GFR (MDRD) Af Amer 117, Est GFR (MDRD) Non-Af 97, BUN/Creatinine Ratio 11.7, Glucose 125 H, Calcium 7.6 L, Total Bilirubin 0.20, AST 83 H, ALT 75 H, Alkaline Phosphatase 71, Total Protein 6.6, Albumin 2.5 L, Globulin 4.1, Albumin/Globulin Ratio 0.6 L Micro: Microbiology 10/11/24 23:20 Mucosa - Nasopharyngeal Respiratory Panel (PCR) - Final 10/11/24 17:46 Mucosa - Nose SARS-CoV-2, Influenza & RSV (PCR) - Final ABG Data ABG results: ABG 10/11/24 18:21 Specimen Type ART Sample Site R Radial pH 7.47 H Bicarbonate Actual 27.3 H Total CO2 29 Base Excess 4 H O2 Saturation 98 O2 % 6.0 ABG pCO2 37.6 ABG pO2 102 H Parvez Test Positive O2 Delivery Device AeroMask Vent Mode Not entered Radiography Diagnostic Testing: Radiology Impression Chest X-Ray 10/11/24 18:40 IMPRESSION: Pulmonary findings as above. Reading Location: [facility] Physical Exam Const alert Constitutional Narrative: patient nonverbal, coughing incessantly HEENT normocephalic, head/scalp atraumatic and moist oral mucous membranes Eyes PERRL and EOMs intact bilaterally Neck no lymphadenopathy and supple Lymph Lymphatic: no lymphadenopathy noted and no lymphedema noted Resp Resp Narrative: mildly diminished breath sounds bibasally, no wheezing, mild crackles. On room air. Cardio regular rate, regular rhythm, S1 normal heart sound, S2 normal heart sound and no murmurs GI normal to inspection, nondistended, normoactive bowel sounds, soft to palpation, non-tender and non-distended Extremity normal capillary refill, no clubbing, cyanosis or edema and no calf tenderness General Extremity: no tenderness to palpation of joints or extremities Skin General Skin Exam: no breakdown Neuro Neuro Narrative: flat affect, nonverbal, moves all extremities spontaneously Motor Exam: general weakness Psych Mood & Affect: flat affect Assessment & Plan Assessment/Plan (1) Pneumonia: (2) Sepsis: (3) Acidosis, lactic: PLAN: Plan #Acute hypoxic respiratory failure due to left lower lobe pneumonia * Patient weaned down to room air. Admitted with a complaint of shortness of breath. Chest x-ray showed left lower lobe infiltrate versus pneumonia * Patient was coughing incessantly when I saw him today. Will benefit from speech therapy evaluation to make sure he is not aspirating. * On IV unasyn. Critical care on board. Blood and sputum cultures pending. Urine for strep and Legionella antigens ordered. * Titrate oxygen to maintain saturation above 90%. Breathing treatments bronchodilators. #Sepsis due to community-acquired pneumonia * Was tachycardic and tachypneic and had elevated lactic acid on admission 2. Management as above. * wbc is down to 10.2. #Seizure disorder: On carbamazepine and lamotrigine. 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 Stable. #Hyperlipidemia: On statin #Hypertension: On losartan. IV hydralazine as needed #DVT prophylaxis: lovenox Charges/Coding Visit Charges Inpatient E&M: 87328 [facility] Hosp L2
--- NOTE | 2024-10-12 15:14 | CHAPLAIN ---
Type of Pastoral Visit ___ Initial Visit ___ Follow-up Visit ___ On-call Visit ___ General Patient Visit ___ Spiritual Assessment ___ Family Conference ___ Bereavement ___ Rapid Response ___ Code Blue ___ Other (describe below) Pastoral Care Referral From ___ Patient ___ Family ___ Nurse ___ Physician ___ Pattern Cutter ___ American Indian Studies Professor ___ Other (describe below) Sacrament/Intervention ___ Active listening ___ Anointing ___ Uatsdin ___ Bereavement ___ Communion ___ Ngozi exploration ___ ___ Life review ___ Prayer ___ Reconciliation ___ Sacrament of Sick ___ Supportive presence ___ Wedding ___ Other (describe below) Pastoral Comments patient is non verbal; pt is sitting up in the chair but only is opening his eyes occasionally due to sleepiness; father and this sheriffs dialogue; father gives some history and life review about the patient; father is thankful that the [place] facility got him to the hospital as he has seen improvement already; pt is reported to being content; father welcomes a prayer along with the presence of support
--- NOTE | 2024-10-12 15:16 | CHAPLAIN ---
Type of Pastoral Visit _x__ Initial Visit ___ Follow-up Visit ___ On-call Visit ___ General Patient Visit ___ Spiritual Assessment ___ Family Conference ___ Bereavement ___ Rapid Response ___ Code Blue ___ Other (describe below) Pastoral Care Referral From ___ Patient _x__ Family _x__ Nurse ___ Physician ___ Pump Runner ___ Wage Analyst ___ Other (describe below) Sacrament/Intervention ___ Active listening ___ Anointing ___ Voodoo ___ Bereavement ___ Communion ___ Ngozi exploration ___ ___ Life review _x__ Prayer ___ Reconciliation ___ Sacrament of Sick _x__ Supportive presence ___ Wedding ___ Other (describe below) Pastoral Comments see previous notes about visit with patient's father
[2024-10-12] MEDS: Albuterol 2.5 MG/3 ML VIAL.NEB. INHALATION (15:44)
[2024-10-12] MEDS: Atorvastatin Calcium 20 MG Tablet PO (20:48)
[2024-10-12] MEDS: Azithromycin 500 MG in 0.9% Normal Saline (250mL Bag) 250 ML 255 MG IV (21:14)
[2024-10-12] MEDS: NORMAL SALINE 15 ML IV (23:49)
[2024-10-13 05:40] VITALS: BP 144/74; PULSE 101; RESP 20; TEMP 37.3; O2SAT 93
[2024-10-13] MEDS: guaiFENesin 10 ML UDC (200MG/10ML) PO (05:58)
[2024-10-13 06:00] VITALS: BMI 29.0
[2024-10-13] MEDS: Ampicillin/Sulbactam 3 GM in 0.9% Normal Saline (100mL MB+) 100 ML IV ×3 (06:02→17:54)
[2024-10-13 06:58] LABS: Absolute Lymphocyte Count 0.77 X10^3/uL (0.83-4.51); Absolute Neutrophil Count 9.1 X10^3/uL (2.0-7.7); Basophil# 0.06 X10^3/uL; Basophil% 0.5 % (0-1); Eosinophil# 0.29 X10^3/uL; Eosinophils% 2.6 % (0-5); Hemoglobin 12.2 g/dL (13.0-16.5); Lymphocyte # 0.77 X10^3/ul (0.83-4.51); Lymphocyte % 6.9 % (19-41); Mean Corpuscular Hgb 30.6 pg (27.0-32.0); Mean Corpuscular Volume 92.7 fL (80-94); Mean Platelet Vol. 9.9 fl (6.2-12.0); Monocyte# 0.81 X10^3/uL; Monocyte% 7.2 % (0-10); NRBC Flagged by Analyzer 0 % (0-5); Neutrophil # 9.11 X10^3/uL (2.7-7.7); Neutrophil % 81.5 % (47-70); Platelet Count 256 K/mm3 (150-450); RBC Distribution Width CV 12.7 % (11.6-14.6); RBC Distribution Width SD 43.5 fl (35.1-43.9); Red Blood Count 3.99 M/mm3 (4.6-6.2); White Blood Count 11.2 K/mm3 (4.4-11.0)
[2024-10-13 07:16] LABS: Anion Gap 8 (5-15); BUN 8 mg/dL (7-18); BUN/Creat Ratio 11.8 RATIO (10-20); Calcium,Total 7.9 mg/dL (8.5-10.1); Chloride 110 mmol/L (98-107); Creatinine, Serum 0.68 mg/dL (0.70-1.30); EST Glomerular Filtration Rate 127 mL/min (>60); Est Glom Filt Rate - Afr Amer 153 mL/min (>60); Glucose 106 mg/dL (74-106); Potassium 3.6 mmol/L (3.5-5.1); Sodium Level 142 mmol/L (136-145)
[2024-10-13 07:48] VITALS: O2SAT 93
[2024-10-13 08:47] VITALS: BP 148/91; PULSE 80; RESP 18; TEMP 36.8; O2SAT 93
[2024-10-13] MEDS: Menthol/Lanolin/Calamine/Znox 113 GM Tube 1 APPLIC TOPICAL ×2 (10:58→21:43)
[2024-10-13] MEDS: carBAMazepine 200 MG/10 ML UDC (WCH) 150 MG PO ×2 (10:58→21:42)
[2024-10-13] MEDS: Enoxaparin 40 MG/0.4 ML Syringe SC (10:58)
[2024-10-13] MEDS: lamoTRIgine 100 MG Tablet PO ×2 (10:59→21:43)
[2024-10-13] MEDS: Losartan Potassium 100 MG Tablet PO (10:59)
[2024-10-13] MEDS: Pantoprazole Sodium 40 MG in 0.9% Normal Saline (100mL MB+) 100 ML 330 MG IV ×2 (11:00→21:44)
[2024-10-13] MEDS: 0.9% Saline Lock 10 ML Syringe IV (11:00)
--- NOTE | 2024-10-13 11:08 | PN_ITS ---
Subjective Subjective Patient seen and examined. He was lying comfortably in bed. He is nonverbal so unable to do review of systems. He is on room air. Blood cultures growing Staph epidermidis which was thought to be contaminant. He is awaiting placement but his alf will not have staff until Tuesday so he has to be discharged on Tuesday. Objective Data Objective Data Vital Signs: Vital Signs Temp Pulse Resp BP Pulse Ox O2 Del Method O2 Flow Rate 98.2 F 80 18 148/91 H 93 Room Air 3 10/13/24 08:47 10/13/24 08:47 10/13/24 08:47 10/13/24 08:47 10/13/24 08:47 10/13/24 08:51 10/12/24 05:41 Oxygen Flow Rate (L/min) 3 Oxygen Delivery Method Room Air Weight: 170 lb 3.15 oz Body Mass Index (BMI) 29.0 Intake & Output: Intake and Output for Last 24 Hours 10/11/24 10/12/24 10/13/24 23:59 23:59 23:59 Intake Total 2915 / 2915 2743 / 2743 245.25 / 245.25 Balance 2915 / 2915 2743 / 2743 245.25 / 245.25 Lab / Micro Data 10/13/24 05:55 10/13/24 05:55 Labs: Laboratory Results - last 24 hr 10/13/24 05:55: WBC 11.2 H, RBC 3.99 L, Hgb 12.2 L, Hct 37.0 L, MCV 92.7, MCH 30.6, MCHC 33.0, RDW Std Deviation 43.5, RDW Coeff of Javed 12.7, Plt Count 256, MPV 9.9, Immature Gran % (Auto) 1.300 H, Neut % (Auto) 81.5 H, Lymph % (Auto) 6.9 L, [place] % (Auto) 7.2, Eos % (Auto) 2.6, Baso % (Auto) 0.5, Absolute Neuts (auto) 9.1 H, Absolute Lymphs (auto) 0.77 L, Nucleated RBC % 0, Sodium 142, Potassium 3.6, Chloride 110 H, Carbon Dioxide 24.0, Anion Gap 8, BUN 8, C reatinine 0.68 L, Estim Creat Clear Calc 108.50, Est GFR (MDRD) Af Amer 153, Est GFR (MDRD) Non-Af 127, BUN/Creatinine Ratio 11.8, Glucose 106, Calcium 7.9 L Micro: Microbiology 10/12/24 18:00 Nasal Secretion MRSA (PCR) - Final 10/11/24 23:20 Mucosa - Nasopharyngeal Respiratory Panel (PCR) - Final 10/11/24 17:46 Mucosa - Nose SARS-CoV-2, Influenza & RSV (PCR) - Final Physical Exam Const alert Constitutional Narrative: nonverbal General Appearance: cooperative HEENT normocephalic, head/scalp atraumatic and moist oral mucous membranes Eyes PERRL and EOMs intact bilaterally Neck no lymphadenopathy and supple Lymph Lymphatic: no lymphadenopathy noted and no lymphedema noted Resp Resp Narrative: mildly diminished breath sounds bibasally, no wheezing, mild crackles. On room air. Cardio regular rate, regular rhythm, S1 normal heart sound, S2 normal heart sound and no murmurs GI normal to inspection, nondistended, normoactive bowel sounds, soft to palpation, non-tender and non-distended Extremity normal capillary refill, no clubbing, cyanosis or edema and no calf tenderness General Extremity: no tenderness to palpation of joints or extremities Skin General Skin Exam: no breakdown Neuro Neuro Narrative: flat affect, nonverbal, moves all extremities spontaneously Motor Exam: general weakness Assessment & Plan Assessment/Plan (1) Pneumonia: (2) Sepsis: (3) Acidosis, lactic: PLAN: Plan #Acute hypoxic respiratory failure due to left lower lobe pneumonia * Patient remains on room air Admitted with a complaint of shortness of breath. Chest x-ray showed left lower lobe infiltrate versus pneumonia * On IV unasyn. Critical care on board. Blood cultures pending. * On room air. Breathing treatments bronchodilators. Titrate oxygen as needed to maintain saturation >90% * WBC slightly up to 11.2 today. Blood and sputum cultures pending. * #Sepsis due to community-acquired pneumonia * Was tachycardic and tachypneic and had elevated lactic acid on admission 2. Management as above. * WBC slightly up to 11.2 today. Continue IV Unasyn. Await culture results. #Seizure disorder: On carbamazepine and lamotrigine. 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 Stable. #Hyperlipidemia: On statin #Hypertension: On losartan. IV hydralazine as needed #DVT prophylaxis: lovenox Disposition: * For discharge back to alf once medically stable. * He cannot go back to alf until Tuesday because of staffing levels in the alf. Charges/Coding Visit Charges Inpatient E&M: 17576 Subs Hosp L2
[2024-10-13 16:42] VITALS: BP 154/79; PULSE 89; RESP 18; TEMP 37.2; O2SAT 94
[2024-10-13 21:33] VITALS: BP 136/75; PULSE 90; RESP 18; TEMP 37.3; O2SAT 94
[2024-10-13] MEDS: Atorvastatin Calcium 20 MG Tablet PO (21:44)
[2024-10-13] MEDS: Azithromycin 500 MG in 0.9% Normal Saline (250mL Bag) 250 ML 255 MG IV (22:41)
[2024-10-14] MEDS: Ampicillin/Sulbactam 3 GM in 0.9% Normal Saline (100mL MB+) 100 ML IV ×2 (00:41→06:16)
[2024-10-14 03:08] VITALS: BP 129/79; PULSE 87; RESP 19; TEMP 36.9; O2SAT 94
[2024-10-14 06:00] VITALS: BMI 28.6
[2024-10-14] MEDS: 0.9% Saline Lock 10 ML Syringe IV (06:16)
[2024-10-14 06:49] LABS: Absolute Lymphocyte Count 0.79 X10^3/uL (0.83-4.51); Absolute Neutrophil Count 6.6 X10^3/uL (2.0-7.7); Basophil# 0.03 X10^3/uL; Basophil% 0.4 % (0-1); Eosinophil# 0.31 X10^3/uL; Eosinophils% 3.6 % (0-5); Hemoglobin 12.3 g/dL (13.0-16.5); Lymphocyte # 0.79 X10^3/ul (0.83-4.51); Lymphocyte % 9.2 % (19-41); Mean Corp Hgb Conc 31.5 g/dL (32-36); Mean Corpuscular Hgb 29.1 pg (27.0-32.0); Mean Corpuscular Volume 92.2 fL (80-94); Mean Platelet Vol. 9.8 fl (6.2-12.0); Monocyte# 0.68 X10^3/uL; NRBC Flagged by Analyzer 0 % (0-5); Neutrophil # 6.58 X10^3/uL (2.7-7.7); Neutrophil % 76.9 % (47-70); Platelet Count 280 K/mm3 (150-450); RBC Distribution Width CV 12.6 % (11.6-14.6); RBC Distribution Width SD 42.5 fl (35.1-43.9); Red Blood Count 4.23 M/mm3 (4.6-6.2); White Blood Count 8.6 K/mm3 (4.4-11.0)
[2024-10-14 07:23] LABS: Anion Gap 9 (5-15); BUN 10 mg/dL (7-18); BUN/Creat Ratio 13.5 RATIO (10-20); Calcium,Total 8.6 mg/dL (8.5-10.1); Chloride 108 mmol/L (98-107); Creatinine, Serum 0.74 mg/dL (0.70-1.30); EST Glomerular Filtration Rate 114 mL/min (>60); Est Glom Filt Rate - Afr Amer 138 mL/min (>60); Glucose 92 mg/dL (74-106); Potassium 3.8 mmol/L (3.5-5.1); Sodium Level 141 mmol/L (136-145)
[2024-10-14 09:16] VITALS: BP 105/84; PULSE 95; RESP 20; TEMP 36.8; O2SAT 93
[2024-10-14 09:23] VITALS: PULSE 90
--- NOTE | 2024-10-14 10:01 | PCM.PROGNOTE ---
Subjective Subjective Patient seen and examined. He remains nonverbal. He was lying comfortably in bed. Unable to do review of systems. Objective Data Objective Data Vital Signs: Vital Signs Temp Pulse Resp BP Pulse Ox O2 Del Method O2 Flow Rate 98.3 F 90 20 H 105/84 H 93 Room Air 3 10/14/24 09:16 10/14/24 09:23 10/14/24 09:16 10/14/24 09:16 10/14/24 09:16 10/14/24 09:16 10/12/24 05:41 Oxygen Flow Rate (L/min) 3 Oxygen Delivery Method Room Air Weight: 167 lb 15.876 oz Body Mass Index (BMI) 28.6 Intake & Output: Intake and Output for Last 24 Hours 10/12/24 10/13/24 10/14/24 23:59 23:59 23:59 Intake Total 2743 / 2743 944.25 / 1094.25 374 / 374 Balance 2743 / 2743 944.25 / 1094.25 374 / 374 Lab / Micro Data 10/14/24 05:38 10/14/24 05:38 Labs: Laboratory Results - last 24 hr 10/14/24 05:38: WBC 8.6, RBC 4.23 L, Hgb 12.3 L, Hct 39.0 L, MCV 92.2, MCH 29.1, MCHC 31.5 L, RDW Std Deviation 42.5, RDW Coeff of Javed 12.6, Plt Count 280, MPV 9.8, Immature Gran % (Auto) 1.900 H, Neut % (Auto) 76.9 H, Lymph % (Auto) 9.2 L, [place] % (Auto) 8.0, Eos % (Auto) 3.6, Baso % (Auto) 0.4, Absolute Neuts (auto) 6.6, Absolute Lymphs (auto) 0.79 L, Nucleated RBC % 0, Sodium 141, Potassium 3.8, Chloride 108 H, Carbon Dioxide 25.0, Anion Gap 9, BUN 10, Creatinine 0.74, Estim Creat Clear Calc 99.10, Est GFR (MDRD) Af Amer 138, Est GFR (MDRD) Non-Af 114, BUN/Creatinine Ratio 13.5, Glucose 92, Calcium 8.6 Micro: Microbiology 10/12/24 18:00 Nasal Secretion MRSA (PCR) - Final 10/11/24 23:20 Mucosa - Nasopharyngeal Respiratory Panel (PCR) - Final 10/11/24 17:46 Mucosa - Nose SARS-CoV-2, Influenza & RSV (PCR) - Final Physical Exam Const alert and oriented x3 Constitutional Narrative: nonverbal General Appearance: cooperative HEENT normocephalic, head/scalp atraumatic and moist oral mucous membranes Eyes PERRL and EOMs intact bilaterally Neck no lymphadenopathy and supple Lymph Lymphatic: no lymphadenopathy noted and no lymphedema noted Resp Resp Narrative: mildly diminished breath sounds bibasally, no wheezing, mild crackles. On room air. Cardio regular rate, regular rhythm, S1 normal heart sound, S2 normal heart sound and no murmurs GI normal to inspection, nondistended, normoactive bowel sounds, soft to palpation, non-tender and non-distended Extremity normal capillary refill, no clubbing, cyanosis or edema and no calf tenderness General Extremity: no tenderness to palpation of joints or extremities Skin General Skin Exam: no breakdown Neuro Neuro Narrative: flat affect, nonverbal, moves all extremities spontaneously Motor Exam: general weakness Psych Mood & Affect: flat affect Assessment & Plan Assessment/Plan (1) Pneumonia: (2) Sepsis: (3) Acidosis, lactic: PLAN: Plan #Acute hypoxic respiratory failure due to left lower lobe pneumonia Patient remains on room air Admitted with a complaint of shortness of breath. Chest x-ray showed left lower lobe infiltrate versus pneumonia On IV unasyn. Critical care on board. Blood cultures pending. On room air. Breathing treatments bronchodilators. Titrate oxygen as needed to maintain saturation >90% WBC down to 8.6 today IV line fell out and he is a hard stick. Since he is on room air white cell count is trended downwards will switch patient to p.o. Augmentin. #Sepsis due to community-acquired pneumonia Was tachycardic and tachypneic and had elevated lactic acid on admission 2. Management as above. WBC down to 8.6 today. Patient's IV fell out and as stated above is a hard stick. Will therefore switch patient to p.o. Augmentin #Seizure disorder: On carbamazepine and lamotrigine. 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 Stable. #Hyperlipidemia: On statin #Hypertension: On losartan. IV hydralazine as needed #DVT prophylaxis: lovenox Disposition: For discharge back to nursing home once medically stable. He cannot go back to nursing home until Tuesday because of staffing levels in the nursing home. Charges/Coding Visit Charges Inpatient E&M: 31868 Subs Hosp L2
--- NOTE | 2024-10-14 10:45 | NURSING ---
spoke with Dank in Pharmacy he will change some of his meds to liquid.
[2024-10-14] MEDS: carBAMazepine 200 MG/10 ML UDC (WCH) 150 MG PO ×2 (11:23→21:05)
[2024-10-14] MEDS: Amox/Clav 400mg/5ml Susp 875 MG PO ×2 (11:25→16:52)
[2024-10-14] MEDS: Lansoprazole 15 MG Capsule.DR 30 MG PO (11:27)
[2024-10-14] MEDS: Enoxaparin 40 MG/0.4 ML Syringe SC (11:28)
[2024-10-14] MEDS: lamoTRIgine 100 MG Tablet PO ×2 (11:28→21:06)
[2024-10-14] MEDS: Senna/Docusate Sodium 1 Tablet 2 TABLET PO (13:22)
[2024-10-14] MEDS: guaiFENesin 10 ML UDC (200MG/10ML) PO (13:22)
[2024-10-14] MEDS: Menthol/Lanolin/Calamine/Znox 113 GM Tube 1 APPLIC TOPICAL ×2 (15:28→21:06)
[2024-10-14 15:35] VITALS: PULSE 90
[2024-10-14 20:54] VITALS: BP 110/70; PULSE 65; RESP 16; TEMP 37.1; O2SAT 92
[2024-10-14] MEDS: Atorvastatin Calcium 20 MG Tablet PO (21:06)
[2024-10-15] MEDS: guaiFENesin 10 ML UDC (200MG/10ML) PO (00:10)
[2024-10-15 02:48] VITALS: BP 146/73; PULSE 86; RESP 18; TEMP 36.8; O2SAT 92
[2024-10-15 06:00] VITALS: BMI 28.3
[2024-10-15 06:49] LABS: Absolute Neutrophil Count 7.1 X10^3/uL (2.0-7.7); Basophil# 0.09 X10^3/uL; Eosinophil# 0.37 X10^3/uL; Hematocrit 39.3 % (40-54); Hemoglobin 13.2 g/dL (13.0-16.5); Lymphocyte % 8.6 % (19-41); Mean Corpuscular Hgb 30.4 pg (27.0-32.0); Mean Corpuscular Volume 90.6 fL (80-94); Mean Platelet Vol. 9.6 fl (6.2-12.0); Monocyte# 0.62 X10^3/uL; Monocyte% 6.7 % (0-10); NRBC Flagged by Analyzer 0 % (0-5); Neutrophil # 7.09 X10^3/uL (2.7-7.7); Neutrophil % 76.7 % (47-70); Platelet Count 318 K/mm3 (150-450); RBC Distribution Width CV 12.2 % (11.6-14.6); RBC Distribution Width SD 40.1 fl (35.1-43.9); Red Blood Count 4.34 M/mm3 (4.6-6.2); White Blood Count 9.3 K/mm3 (4.4-11.0)
[2024-10-15 07:09] LABS: Mean Corp Hgb Conc 33.6 g/dL (32-36)
[2024-10-15 07:18] LABS: Anion Gap 7 (5-15); BUN 11 mg/dL (7-18); BUN/Creat Ratio 14.9 RATIO (10-20); Calcium,Total 9.3 mg/dL (8.5-10.1); Chloride 104 mmol/L (98-107); Creatinine, Serum 0.74 mg/dL (0.70-1.30); EST Glomerular Filtration Rate 114 mL/min (>60); Est Glom Filt Rate - Afr Amer 138 mL/min (>60); Glucose 103 mg/dL (74-106); Potassium 3.7 mmol/L (3.5-5.1); Sodium Level 138 mmol/L (136-145)
--- NOTE | 2024-10-15 08:33 | PCM.PN.HOSP ---
Reason for Visit Reason for Visit: Diagnoses Sepsis, unspecified organism (10/11/24) Acidosis, unspecified (10/11/24) Pneumonia, unspecified organism (10/11/24) Acute respiratory failure with hypoxia (10/11/24) Subjective Subjective No events overnight. Objective Data Objective Data Vital Signs: Vital Signs Temp Pulse Resp BP Pulse Ox O2 Del Method O2 Flow Rate 36.8 C 86 18 146/73 H 92 Room Air 3 10/15/24 02:48 10/15/24 02:48 10/15/24 02:48 10/15/24 02:48 10/15/24 02:48 10/15/24 02:55 10/12/24 05:41 Oxygen Flow Rate (L/min) 3 Oxygen Delivery Method Room Air Weight: 75.2 kg Body Mass Index (BMI) 28.3 Intake & Output: Intake and Output for Last 24 Hours 10/13/24 10/14/24 10/15/24 23:59 23:59 23:59 Intake Total 944.25 / 1094.25 374 / 374 Balance 944.25 / 1094.25 374 / 374 Lab / Micro Data 10/15/24 06:03 10/15/24 06:03 Labs: Laboratory Results - last 24 hr 10/15/24 06:03: WBC 9.3, RBC 4.34 L, Hgb 13.2, Hct 39.3 L, MCV 90.6, MCH 30.4, MCHC 33.6 D, RDW Std Deviation 40.1, RDW Coeff of Javed 12.2, Plt Count 318, MPV 9.6, Immature Gran % (Auto) 3.000 H, Neut % (Auto) 76.7 H, Lymph % (Auto) 8.6 L, [place] % (Auto) 6.7, Eos % (Auto) 4.0, Baso % (Auto) 1.0, Absolute Neuts (auto) 7.1, Absolute Lymphs (auto) 0.80 L, Nucleated RBC % 0, Sodium 138, Potassium 3.7, Chloride 104, Carbon Dioxide 27.0, Anion Gap 7, BUN 11, Creatinine 0.74, Estim Creat Clear Calc 98.50, Est GFR (MDRD) Af Amer 138, Est GFR (MDRD) Non-Af 114, BUN/Creatinine Ratio 14.9, Glucose 103, Calcium 9.3 Micro: Microbiology 10/11/24 19:35 Blood Culture (Wb) - Left Hand Blood Culture - Preliminary No growth in 48 hours. 10/11/24 17:46 Blood Culture (Wb) - Left Forearm Blood Culture - Preliminary No growth in 48 hours. 10/12/24 18:00 Nasal Secretion MRSA (PCR) - Final 10/11/24 23:20 Mucosa - Nasopharyngeal Respiratory Panel (PCR) - Final 10/11/24 17:46 Mucosa - Nose SARS-CoV-2, Influenza & RSV (PCR) - Final Physical Exam Const alert and no apparent distress Constitutional Narrative: non verbal. Up in chair. Non-toxic. HEENT head/scalp atraumatic and moist oral mucous membranes Resp normal respiratory effort, no retractions, no use of accessory muscles and clear to auscultation bilaterally Cardio regular rate, regular rhythm, S1 normal heart sound and S2 normal heart sound GI normal to inspection, nondistended, normoactive bowel sounds, soft to palpation, non-tender and non-distended Assessment & Plan Assessment/Plan (1) Sepsis: PLAN: POA and now resolved. Please see H+P for criteria 2/2 pneumonia BCx negative. (2) Pneumonia: PLAN: suspected pneumococcal resp panel, COVID1-/influenza/RSV negative. on amox/CA through the . PLAN: Plan VTE prophylaxis w Enoxaparin Dispo to [facility]. DW patient's father at bedside.
[2024-10-15] MEDS: carBAMazepine 200 MG/10 ML UDC (WCH) 150 MG PO (08:35)
[2024-10-15] MEDS: Menthol/Lanolin/Calamine/Znox 113 GM Tube 1 APPLIC TOPICAL (08:36)
[2024-10-15] MEDS: Lansoprazole 15 MG Capsule.DR 30 MG PO (08:37)
[2024-10-15] MEDS: Losartan Potassium 100 MG Tablet PO (08:37)
[2024-10-15] MEDS: lamoTRIgine 100 MG Tablet PO (08:37)
[2024-10-15] MEDS: Enoxaparin 40 MG/0.4 ML Syringe SC (08:37)
[2024-10-15] MEDS: Amox/Clav 400mg/5ml Susp 875 MG PO (08:42)
[2024-10-15 08:47] VITALS: BP 144/75; PULSE 72; RESP 18; TEMP 36.9; O2SAT 94
--- NOTE | 2024-10-15 11:28 | DS.PCM_ITS ---
Providers Date of Admission: 10/11/24 Primary Care Physician: Dr. Tara Menjivar, Consultations 10/11/24 21:48 Consult: Ethylbenzene Converter Helper / Pulmonary Medicine Routine Consulting Provider: Pulmonary Medicine esdras Thomas Reason for Consult: Sepsis, respiratory failure, encephalopathy, PNA EMERGENT Consult: No MD Notified: Yes Date Notified: 10/11/24 Time Notified: 19:43 Method of Notification: Verbal Reason For Visit: RESPIRATORY FAILURE ENCEPHALOPTHY SEPSIS PNA Diagnosis Discharge Diagnosis (1) Sepsis: Status: Acute Code(s): A41.9 - Sepsis, unspecified organism Plan: POA and now resolved. Please see H+P for criteria 2/2 pneumonia BCx negative. (2) Pneumonia: Status: Acute Code(s): J18.9 - Pneumonia, unspecified organism Plan: suspected pneumococcal resp panel, COVID1-/influenza/RSV negative. on amox/CA through the . Plan VTE prophylaxis w Enoxaparin [facility]. DW patient's father at bedside. Medications at Discharge Home Medications acetaminophen 650 mg tablet,extended release 1,300 mg PO Q6H 10/11/24 atorvastatin 20 mg tablet 20 mg PO QHS 10/11/24 carbamazepine 100 mg chewable tablet 150 mg PO Q12H 10/11/24 cholecalciferol (vitamin D3) 25 mcg (1,000 unit) tablet 25 mcg PO DAILY 10/11/24 docusate sodium 100 mg capsule mg PO 10/11/24 ibuprofen 600 mg tablet 600 mg PO 3XD 10/11/24 lamotrigine 100 mg tablet 100 mg PO Q12H 10/11/24 linaclotide 290 mcg capsule (Linzess) 290 mcg PO DAILY 10/11/24 losartan 100 mg tablet 100 mg feeding tube DAILY 10/11/24 omeprazole 20 mg capsule,delayed release 20 mg PO DAILY 10/11/24 polyethylene glycol 3350 17 gram/dose oral powder 17 g PO BID PRN constipation 10/11/24 amoxicillin 875 mg-potassium clavulanate 125 mg tablet 1 tab PO BID #7 tabs 10/15/24 Hospital Course Operations None Procedures None Summary of Care Provided Minutes Spent on Discharge: 32 Hospital Course: Patient presents with sepsis secondary pneumonia. Patient went infectious workup that was unremarkable. Presumably the patient had pneumococcal pneumonia. Patient will be continued on Augmentin through the . Patient was bored here over the weekend as a prison did not have staffing available to accommodate him. Patient is stable to be discharged today. Case discussed with the patient's father at bedside. Weight / BMI Weight Weight: 75.2 kg Body Mass Index (BMI) 28.3 ABG / Lab / Microbiology Data 10/15/24 06:03 10/15/24 06:03 Laboratory: Laboratory Results - last 24 hr 10/15/24 06:03: WBC 9.3, RBC 4.34 L, Hgb 13.2, Hct 39.3 L, MCV 90.6, MCH 30.4, M CHC 33.6 D, RDW Std Deviation 40.1, RDW Coeff of Javed 12.2, Plt Count 318, MPV 9.6, Immature Gran % (Auto) 3.000 H, Neut % (Auto) 76.7 H, Lymph % (Auto) 8.6 L, [place] % (Auto) 6.7, Eos % (Auto) 4.0, Baso % (Auto) 1.0, Absolute Neuts (auto) 7.1, Absolute Lymphs (auto) 0.80 L, Nucleated RBC % 0, Sodium 138, Potassium 3.7, Chloride 104, Carbon Dioxide 27.0, Anion Gap 7, BUN 11, Creatinine 0.74, Estim Creat Clear Calc 98.50, Est GFR (MDRD) Af Amer 138, Est GFR (MDRD) Non-Af 114, BUN/Creatinine Ratio 14.9, Glucose 103, Calcium 9.3 Microbiology: Microbiology 10/11/24 19:35 Blood Culture (Wb) - Left Hand Blood Culture - Preliminary No growth in 48 hours. 10/11/24 17:46 Blood Culture (Wb) - Left Forearm Blood Culture - Preliminary No growth in 48 hours. 10/12/24 18:00 Nasal Secretion MRSA (PCR) - Final 10/11/24 23:20 Mucosa - Nasopharyngeal Respiratory Panel (PCR) - Final 10/11/24 17:46 Mucosa - Nose SARS-CoV-2, Influenza & RSV (PCR) - Final D/C Instructions Discharge Diet: No restrictions DC O2, CPAP, BIPAP Needs Home O2 Discharge instructions: No Meaningful Use Info Meaningful Use Meaningful Use Diagnoses (Choose all that apply): None applicable Ischemic Stroke Statin Dosing Therapy Reference: STATIN DOSE THERAPY REFERENCE: * Patients > 75 years receive moderate or high dose statin therapy. * Patients 75 years or YOUNGER should receive HIGH intensity statin dose unless contraindicated. You will be required to document reason for non-treatment if statin daily dose does not meet guidelines. HIGH DOSE STATIN THERAPY DAILY Atorvastatin > than or = to 40 mg Rosuvastatin > than or = to 20 mg Amlodipine + Atorvastatin > than or = to 2.5/40 mg Ezetimibe + Simvastatin 10/80 mg Simvastatin 80mg Discharge Plan Admission Admit Date/Time: 10/11/24 19:41 Primary Reason for Your Visit: sepsis. pneumonia Attending Provider: Jose Armando Lane Primary Care Provider: Tara Menjivar Consulting Providers: Deonna Marroquin; Suzy Caban Discharge Orders/Prescriptions Prescriptions: New amoxicillin-pot clavulanate 875-125 mg tablet 1 tab PO BID Qty: 7 0RF Continued acetaminophen 650 mg tablet extended release 1,300 mg PO Q6H Patient Comments: [NO ORIGINAL SIG] carbamazepine 100 mg tablet,chewable 150 mg PO Q12H Patient Comments: [NO ORIGINAL SIG] losartan 100 mg tablet 100 mg feeding tube DAILY Linzess 290 mcg capsule 290 mcg PO DAILY Rx Instructions: ON EMPTY STOMACH atorvastatin 20 mg tablet 20 mg PO QHS omeprazole 20 mg capsule,delayed release(DR/EC) 20 mg PO DAILY lamotrigine 100 mg tablet 100 mg PO Q12H polyethylene glycol 3350 17 gram/dose powder 17 g PO BID PRN (Reason: constipation) cholecalciferol (vitamin D3) 25 mcg (1,000 unit) tablet 25 mcg PO DAILY docusate sodium 100 mg capsule PO ibuprofen 600 mg tablet 600 mg PO 3XD Referrals / Follow Up: Mame Larkin DO [Med Staff - Active Directory Systems Administrator] - Within 1 Week Tara Menjivar DO [Primary Care Provider] - Disposition Disposition (needs filled in before D/C Order can be placed): NonSkilled NH/Intermed Care Charges/Coding Visit Charges Inpatient E&M: 47980 Disch Hosp >30min
--- NOTE | 2024-10-15 12:08 | CASEMGMT ---
Social Work- ZUNILDA called [facility] and spoke with Juhi who connected ZUNILDA with Linda, pt home attendant. Linda reports that staff will pickers material handlers pt in 1-2 hours. Linda denies need for paperwork to be discharged. Antibiotic has been called in to pharmacy. Bedside RN notified. Pt father notified. ZUNILDA remains available to follow for any needs. Linda contact . Plan: return to [facility], [facility] location DENIS Black
== END 2024-10-15 13:33 | disposition home or self-care (01) | DRG 871 ==
LOC: ED 20:08 → ICU 21:36 → MS3 10-12 23:27
PROVIDERS: Student in an Organized Health Care Education/Training Program; Admitting Provider Family Medicine; Emergency Provider Emergency Medicine; PCP Internal Medicine; Referring Provider Family Medicine
DX: A41.9 Sepsis, unspecified organism (principal); J18.9 Pneumonia, unspecified organism; J96.01 Acute respiratory failure with hypoxia; G93.40 Encephalopathy, unspecified; E87.20 Acidosis, unspecified; J98.11 Atelectasis; G40.909 Epilepsy, unspecified, not intractable, without status epilepticus; I10 Essential (primary) hypertension; E66.9 Obesity, unspecified; K21.9 Gastro-esophageal reflux disease without esophagitis; E78.5 Hyperlipidemia, unspecified; K59.00 Constipation, unspecified; R73.9 Hyperglycemia, unspecified; F79 Unspecified intellectual disabilities; Z68.30 Body mass index [BMI] 30.0-30.9, adult; Z79.899 Other long term (current) drug therapy
CPT/HCPCS: 36415; 36600; 71046; 80048; 80053; 82803; 83605; 84145; 85025; 87040; 87631; 87633; 87641; 92526; 92610; 93005; 94640; 97116; 97162; 97166; 97530; 99285; A4216; J0295; J0696